=== PATIENT | female | born 1935 | race Caucasian/White ===

== ENCOUNTER → 2017-01-24 | Outpatient (CLI) | payer MEDICARE, OTHER ==
[~2017-01-24] MED LIST: ACET-2321 PO; ASCO500T9 PO; ASPI-1115 PO; CAL-MAG-ZINC PO; CHOL400T11 PO; COD1CAPS PO; FLUT16SP EA NOSTRIL; GLUC100015 PO; HYPR10GE3 BOTH EYES; LATA2.5D7 BOTH EYES; MULT-1175 PO; OMEP-122 PO; OXYC-544 PO; POLY17PO6 PO; POTA99TA24 PO; VITA400C19 PO; [UNRECOGNIZED DRUG - CODE] PO
--- NOTE | 2017-01-25 10:19 | ECHOF ---
ECHOCARDIOGRAM REPORT DATE OF PROCEDURE January 24, 2017 This is a two-dimensional echo with spectral Doppler, color-flow and M-mode. It was obtained in a patient with palpitations. Left atrial dimension is normal. Left ventricle end-diastolic dimension is normal. Left ventricular wall thickness is normal. LV systolic function is normal with ejection fraction of 69%. Right atrium is normal. Right ventricle is normal. Aortic root dimension is normal. Mitral valve is morphologically normal with mild mitral regurgitation. Aortic valve is normal with mild aortic insufficiency. Tricuspid valve shows [id number] tricuspid regurgitation with normal estimated pulmonary artery systolic pressure of 31. Pulmonary valve shows mild pulmonary insufficiency. There is no pericardial effusion. IMPRESSION 1. Normal LV systolic function with ejection fraction of 69%. 2. Mild mitral regurgitation. 3. Mild aortic insufficiency. 4. [id number] tricuspid regurgitation with normal estimated pulmonary artery systolic pressure of 31. 5. Mild pulmonary insufficiency. MTDD
== END ==
LOC: IMA 15:22
PROVIDERS: ATTEND Internal Medicine Cardiovascular Disease
DX: I08.3 Combined rheumatic disorders of mitral, aortic and tricuspid valves (principal); R00.2 Palpitations
CPT/HCPCS: 93306

== ENCOUNTER 2018-02-13 06:25 | Inpatient (IN) ==
[~2018-02-13 06:25] MED LIST changes: -ACET-2321 PO; +ACETAMINOPHEN 500 MG TABLET PO ONE; -ASCO500T9 PO; -ASPI-1115 PO; -CAL-MAG-ZINC PO; -CHOL400T11 PO; +CLINDAMYCIN PB 900 MG/50 ML BAG IV ONE; -COD1CAPS PO; +DEXAMETHASONE 4 MG/ML INJECTION IVP ONE; +FAMOTIDINE PB 20 MG/50 ML BAG IV ONE; -FLUT16SP EA NOSTRIL; -GLUC100015 PO; -HYPR10GE3 BOTH EYES; -LATA2.5D7 BOTH EYES; +LIDOCAINE 1% (10mg/ml) 2mL INJ PF SDV ID ONE; +METOCLOPRAMIDE 10mg/2ml INJECTION IVP ONE; -MULT-1175 PO; -OMEP-122 PO; +ONDANSETRON 4 MG/2 ML INJECTION IVP ONE; -OXYC-544 PO; -POLY17PO6 PO; -POTA99TA24 PO; +TRANEXAMIC ACID 1,000 MG in NS 100 ML IV ONE; -VITA400C19 PO; -[UNRECOGNIZED DRUG - CODE] PO
[2018-02-13 06:44] VITALS: BMI 24.4
[2018-02-13] MEDS ORDERED: TRANEXAMIC ACID 1,000 MG in NS 100 ML IV ONE (07:00)
[2018-02-13] MEDS ORDERED: VANCOMYCIN 1,000 MG INJECTION ONE (07:14)
[2018-02-13] MEDS: LR 1,000 ML IV SCH ×2 (07:25→10:07)
[2018-02-13] MEDS: NOZIN NASAL SWAB NAS SCH ×5 (07:33→21:14)
[2018-02-13] MEDS ORDERED: EPINEPHrine PF 0.25 MG, BUPIVACAINE 0.25% PF 30 ML, KETOROLAC INJ 60 MG in NS 30 ML OPSITE ONE (08:00)
--- NOTE | 2018-02-13 08:17 | Anesthesia Preoperative Report ---
Anesthesia Preoperative Record - Date and Time Date: 02/13/18 Preoperative Diagnosis: Rt TKA M17.11 Proposed Procedure: Right TKA NPO Since Date: 02/13/18 NPO Since Time: 00:00 Allergies/Adverse Reactions: Allergies Allergy/AdvReac Type Severity Reaction Status Date / Time Penicillins Allergy Severe Nausea and Verified 02/13/18 07:44 Vomiting adhesive AdvReac Intermediate Verified 02/13/18 06:56 - Vital Signs Vital Signs: Temperature 97.7 F 02/13/18 06:43 Pulse Rate 70 02/13/18 07:14 Respiratory Rate 15 02/13/18 06:43 Blood Pressure 186/80 H 02/13/18 06:43 Pulse Oximetry 97 02/13/18 06:43 Height and Weight: Height 1.57 m Weight 60.6 kg Body Mass Index 24.4 - Medications Inpatient Medications: Current Medications Lactated Ringer's (Lactated Ringers) 1,000 mls @ 50 mls/hr IV .Q20H SISI Last Admin: 02/13/18 07:25 Dose: 50 mls/hr Isopropyl Alcohol (Nozin Nasal Swab) 1 each PAUL Q1M SISI Stop: 02/13/18 08:48 Last Admin: 02/13/18 07:37 Dose: 1 each Sodium Chloride (Iv Flush) 10 - 80 ml IV PRN PRN PRN Reason: Flushing Home Medications: Home Medications Medication Instructions Recorded Confirmed Type Fluticasone Nasal Burke [Flonase] 2 spray EA NOSTRIL DAILY #0 ml 06/08/15 History Latanoprost 1 drop EACH EYE HS #0 bottle 06/08/15 02/13/18 History Omeprazole 20 mg PO ACB #0 tab 06/08/15 02/13/18 History Vitamin E 400 unit PO DAILY #0 cap 06/08/15 02/13/18 History Ascorbic Acid [Vitamin C] 1,000 mg PO DAILY 02/02/18 02/13/18 History Aspirin [Aspirin EC] 81 mg PO DAILY 02/02/18 02/13/18 History Calcium Carb/D3/Magnesium/Zinc 1 tab PO DAILY 02/02/18 02/13/18 History [Sedrick Mag Zinc-D3 Tablet] Cholecalciferol (Vitamin D3) 1 cap PO DAILY 02/02/18 02/13/18 History [Vitamin D3] Metoprolol Tartrate [Lopressor] 25 mg PO BID 02/02/18 02/13/18 History Multivitamin [One Daily] 1 each PO DAILY 02/02/18 02/13/18 History Potassium Gluconate 400 mg PO DAILY 02/02/18 02/13/18 History Vitamin B Complex/Folic Acid 0.4 mg PO DAILY 02/02/18 02/13/18 History [Vitamin B-100 Complex Tablet] Ergocalciferol (Vit. D2) [Vitamin 1 cap PO O 02/13/18 02/13/18 History D-2] Is Patient on Beta Oneyda?: Yes Beta Oneyda Last Dose Date/Time: Metoprolol 02/13/18 @0630 - Medical History Respiratory: DENIES: Sleep Apnea Cardiovascular: Reports: Other (heart palpitations) Gastrointestional: Reports: Gastroesophageal Reflux Disease (h/o) Neuro/Musculoskeletal: Reports: HX.MS.OSAR - Surgical History HEENT Surgeries: Reports: Eye Surgery (nilay cat ext with IOL; corneal transplant x3), Other (glaucoma and macular degeneration) Cardiac Surgeries/Treatments: Reports: Other (vein stripping LLE) GI Surgery/Treatments: Reports: Appendectomy, Cholecystectomy (lap janice), Hernia Repair (x4) Musculoskeletal Surgery/Tx: Reports: Total Knee Replacement (Lt TKA 2014) Anesthesia Reactions: None Hx Family Anesthesia Reaction: No History of Motion Sickness: No - Social History Smoking Status: Never smoker Hx Chewing Tobacco Use: No Second Hand Exposure: No Substance Use Type: does not use Alcohol Intake Frequency: does not drink - Pertinent Findings EKG: Sinus Rhythm - Physical Exam Respiratory Exam: Present: lungs clear Cardiovascular Exam: Present: regular rate and rhythm - Airway Assessment Mallampati Score: II TMD: 3 Fingerbreadths Neck Extension: fair Overall Assessment: may be difficult intubation - ASA ASA Score: 3 - Plan Regional/Trunk Block: Spinal - Discussion Discussion: Discussed risks/options/alternatives of anesthesia and questions answered. Patient consents. Nursing pain assessment noted. Present for Discussion: family member Attestation Statement: Prior to the delivery of any anesthetic medication, I examined the patient, developed the plan, obtained the patient's consent and discussed the risk and benefits of the procedure with the patient/guardian.
[2018-02-13] MEDS ORDERED: MIDAZOLAM 2mg/2ml INJECTION ONE (08:35)
[2018-02-13] MEDS ORDERED: PROPOFOL 500 MG/50 ML VIAL ONE (08:36)
[2018-02-13] MEDS ORDERED: BUPIVACAINE 0.5% (5mg/ml) PF 30ml INJ SDV ONE (08:36)
[2018-02-13] MEDS ORDERED: LIDOCAINE 2% (100mg/5mL) 5ml PF SDV ONE (08:36)
[2018-02-13] MEDS ORDERED: SALINE FLUSH 10ml SYRINGE IV PRN (08:42)
[2018-02-13] MEDS ORDERED: FentaNYL 250 MCG/5 ML INJECTION ONE (09:10)
[2018-02-13] MEDS ORDERED: EPHEDRINE 50mg/ml INJECTION ONE (09:30)
[2018-02-13] MEDS ORDERED: VANCOMYCIN 1,000 MG INJECTION IAR ONE (09:38)
[2018-02-13] MEDS ORDERED: FentaNYL 100 MCG/2 ML INJECTION IVP PRN (10:11)
[2018-02-13] MEDS ORDERED: HYDROMORPHONE 2 MG/ML INJECTION IVP PRN ×2 (10:11→11:45)
[2018-02-13] MEDS ORDERED: ONDANSETRON 4 MG/2 ML INJECTION IVP PRN ×3 (10:11→12:13)
[2018-02-13] MEDS ORDERED: PROPOFOL 40 ML ONE (10:19)
--- NOTE | 2018-02-13 10:32 | Operative Note ---
- Procedure Preoperative Diagnosis: Right knee primary degenerative joint disease Postoperative Diagnosis: Same as preoperative diagnosis. Surgeon: Domingo Parkinson MD Machine Riveter: Aguila Franco Complications: None. Anesthesia: Spinal. Estimated Blood Loss: See Anesthesia Record. Fluids: Please see Anesthesia Record. Description of Procedure: Mrs. Vieyra and her right knee were identified and marked in the preoperative holding area. She was brought back to the operating suite. Spinal anesthetic was administered and she was placed supine on the operating table. The right lower extremity was prepped and draped in my normal sterile fashion. Timeout was performed. The Divesquare robotic arm was used during the surgery. She has slight valgus deformity and slight hyperextension. A standard anterior midline incision followed by medial parapatellar arthrotomy was performed. Anterior fat pad and meniscus were removed. The patella was everted and a patellar osteotomy was performed leaving 12 mm of bone. She had complete loss in the trochlea and large grade 4 lesions in both the medial and lateral femoral condyles. Tibial and femoral arrays and checkpoints were placed both within the original incision. The bone was then registered with the Divesquare robot. Osteophytes were removed and gaps were captured both 90 and 0 with correction. Using the Divesquare robotic software we moved components to give her 60 mm gaps in extension and 18 mm gaps in flexion. The Divesquare robotic arm was then used to assist with the bone cuts. Posterior osteophytes and remaining meniscus were removed. Trial components were placed. We used a 4 femur and a 4 tibia with a 9 mm spacer and a 2 patella. She still slightly hyperextended so I tried an 11 spacer and give a partial release to the MCL as well as the PCL. After which she tracked well and was well balanced throughout range of motion. The tibia was stamped at the proper rotation. Trial components fit well and bone quality was adequate so we proceeded with press-fit components. Components were press-fit into place. A final spacer was also placed. The knee was ranged one more time to ensure good stability, balance and patellar tracking. 1 g of vancomycin powder was then placed into the knee joint. The capsulotomy was then closed with #1 Vicryl. I then left my assistant quality manager to close the subcutaneous tissue with 2-0 Vicryl and a running 0 V-lock. Running 4-0 Monoderm will be used in the subcuticular layer. After drapes are removed patient will be taken to recovery room under the care of anesthesia.
--- NOTE | 2018-02-13 11:18 | Anesthesia Procedure Note ---
Peripheral Nerve Blockade - Procedure Physician: John Parkinson MD Date: 02/13/18 Surgical Procedure: Right total knee replacement Discussion: Discussed risks/options/alternatives of anesthesia and questions answered. Patient consents. Nursing pain assessment noted. Block Start: 11:13 Block Stop: 11:14 Blocked Employed: Adductor Canal, Single Injection Approach: Right Side Confirmed Position: Supine Patient: Consent IV Sedation: No Initial Vital Signs: Temperature 97.7 F 02/13/18 06:43 Temperature Source Oral 02/13/18 06:43 Pulse Rate 64 02/13/18 06:43 Respiratory Rate 15 02/13/18 06:43 Blood Pressure 186/80 H 02/13/18 06:43 Blood Pressure Mean 115 02/13/18 06:43 Blood Pressure Position Sitting 02/13/18 06:43 Pulse Oximetry 97 02/13/18 06:43 Oxygen Delivery Method 02/13/18 06:43 Post Vital Signs: Temperature 97.7 F 02/13/18 06:43 Pulse Rate 70 02/13/18 07:14 Respiratory Rate 15 02/13/18 06:43 Blood Pressure 186/80 H 02/13/18 06:43 Pulse Oximetry 97 02/13/18 06:43 Initial Pain Pain Score: 0 Post Block Pain Score: 0 Ultrasound Used?: Yes - Injectate Bupivacaine (%): 0.5 Bupivacaine (mL): 20 Was Epi 1:200,000 Used?: No Injection: Injection made incrementally with constant monitoring and aspiration every ml
--- NOTE | 2018-02-13 11:36 | XRay Report ---
Indication: postoperative image PROCEDURE: XR knee RT 2V: Encounter: Initial Comparison: January 29, 2018 Findings: Postoperative changes of right total knee replacement are seen. There is expected postoperative subcutaneous gas. No evidence of hardware failure or acute fracture. No retained radiopaque surgical instruments or sponges. Overlying material causing artifact. Impression: New right total knee prosthesis without evidence of immediate complication. .
[2018-02-13] MEDS ORDERED: DiphenhydrAMINE 50 MG/ML INJECTION IVP PRN (12:13)
[2018-02-13] MEDS ORDERED: NOZIN NASAL SWAB NAS ONE (12:13)
[2018-02-13] MEDS ORDERED: LORazepam 1 MG TABLET PO PRN (12:13)
[2018-02-13] MEDS ORDERED: DiphenhydrAMINE 25 MG CAPSULE PO PRN (12:13)
[2018-02-13] MEDS: NS 1,000 ML IV SCH (12:16)
[2018-02-13] MEDS: ACETAMINOPHEN 325 MG TABLET PO SCH ×3 (12:18→21:15)
--- NOTE | 2018-02-13 12:48 | Anesthesia Postoperative Note ---
- Date and Time Date: 02/13/18 Time: 12:47 - Status Patient Participated in Evaluation: Patient Participated in Person Vital Signs: Temperature 97.1 F 02/13/18 12:03 Pulse Rate 74 02/13/18 12:00 Respiratory Rate 18 02/13/18 12:00 Blood Pressure 137/65 02/13/18 12:00 Pulse Oximetry 95 02/13/18 12:00 Respiratory Function: Airway Patent Cardiovascular Function: Regular Pulse EKG: Sinus Rhythm Mental Status: Alert and Oriented Pain Intensity: 0 Hydration: IV Infusing Complications During Recover: None Apparent - Follow-Up Instructions Instructions: Per Surgeon
[2018-02-13] MEDS: TRAMADOL 50 MG TABLET PO PRN ×2 (14:06→14:50)
[2018-02-13] MEDS: CLINDAMYCIN PB 900 MG/50 ML BAG IV SCH ×2 (15:52→21:15)
[2018-02-13] MEDS: Oxycodone *IR* 5 MG TABLET PO PRN (16:00)
[2018-02-13] MEDS: NAPROXEN 220 MG TABLET PO SCH (18:47)
[2018-02-13] MEDS: POM METOPROLOL TARTRATE 25mg TABLET PO SCH (18:48)
[2018-02-13] MEDS: SENNOSIDES 8.6 MG TABLET PO SCH ×2 (21:14→21:20)
[2018-02-13] MEDS: ASPIRIN *EC* 81 MG TABLET PO SCH (21:15)
[2018-02-13] MEDS: DOCUSATE SODIUM 100 MG CAPSULE PO SCH (21:15)
[2018-02-13] MEDS: --POM--LATANOPROST 0.005% EYE DROPS 2.5ml EACH EYE SCH (21:22)
[2018-02-13] MEDS ORDERED: FALL RISK - PHARMACY CONSULT MC ONE (21:36)
[2018-02-14] MEDS: Oxycodone *IR* 5 MG TABLET PO PRN ×5 (01:21→18:37)
[2018-02-14] MEDS: NS 1,000 ML IV SCH (01:22)
[2018-02-14] MEDS: CLINDAMYCIN PB 900 MG/50 ML BAG IV SCH (03:19)
[2018-02-14] MEDS: NOZIN NASAL SWAB NAS SCH ×5 (05:14→21:49)
[2018-02-14] MEDS: OMEPRAZOLE 20 MG PO SCH ×2 (05:18→06:35)
--- NOTE | 2018-02-14 07:44 | Orthopedic Progress Note ---
Date: Date: 02/14/18 Time: 739 Subjective/Severity of Illness: Rosa is doing well. Didn't sleep well for no specific reason. No report CP or breathing issues. Pt has been working on ROM on her own. Hgb 9.5 , Plan is to d/c to her home. Orthopedic Exam Vital signs: Temperature 96.8 F 02/14/18 07:14 Pulse Rate 97 02/14/18 07:14 Respiratory Rate 16 02/14/18 07:14 Blood Pressure 131/67 02/14/18 07:14 Pulse Oximetry 91 02/14/18 07:14 - Constitutional General Appearance: Present: alert, cooperative, no acute distress - Respiratory Exam Present: non-labored - Cardiovascular Exam Present: pedal pulses intact - Extremities Exam Present: pulses intact. Absent: calf tenderness - Dressing Dressing: bloody drainage (Small area mid incision noted on the Mepilex.) - Integumentary Exam Present: pink, warm, dry - Neurological Exam Present: no deficits - Psychiatric Exam Present: alert, normal affect - Labs Result Diagrams: 02/14/18 04:16 02/14/18 04:16 Abnormal lab results 02/14/18 02/14/18 Range/Units 04:16 04:16 Hgb 9.5 L (12-16) GM/DL Sodium 147 H (134-144) MEQ/L Chloride 110 H (98-107) MEQ/L Creatinine 0.6 L (0.7-1.2) mg/dL Glucose 111 H (65-110) MG/DL Calculated Osmolality 284 H (261-280) MOSM/KG H & H 02/14/18 Range/Units 04:16 Hgb 9.5 L (12-16) GM/DL Orthopedic Assessment and Plan (1) Primary osteoarthritis of right knee Status: Acute Assessment and Plan: Aspirin protocol for VTE prophylaxis. Will continue for 6 weeks post op. SCD's for added DVT coverage. PT/OT services to improve independent function. Monitor small spot of drainage for now. Will address it more if it increases after being up with PT. Na and OSM up. Will d/c IV fluids. Discharge Planning per Case Management. - Anticoagulation Therapy Anticoagulation: ASA 81 mg PO BID x6 weeks Hospital Course Summary Disclaimer: The visit summary below is not to be considered part of the above Progress Note.
[2018-02-14] MEDS: NAPROXEN 220 MG TABLET PO SCH ×2 (09:14→16:55)
[2018-02-14] MEDS: ASPIRIN *EC* 81 MG TABLET PO SCH ×2 (09:15→20:45)
[2018-02-14] MEDS: ACETAMINOPHEN 325 MG TABLET PO SCH ×4 (09:15→20:46)
[2018-02-14] MEDS: POLYETHYL GLYCOL 3350 17gm PACKET PO SCH (09:16)
[2018-02-14] MEDS: DOCUSATE SODIUM 100 MG CAPSULE PO SCH ×2 (09:16→20:45)
[2018-02-14] MEDS: POM METOPROLOL TARTRATE 25mg TABLET PO SCH ×2 (09:22→16:56)
[2018-02-14] MEDS: POTASSIUM GLUCONATE PO SCH (09:23)
[2018-02-14] MEDS: FLUTICASONE 50 MCG EA NOSTRIL SCH (09:23)
[2018-02-14] MEDS ORDERED: SENNOSIDES 8.6 MG TABLET PO PRN (10:59)
--- NOTE | 2018-02-14 11:05 | XRay Report ---
Indication: KNEE PAIN PROCEDURE: XR knee RT 2V: Encounter: Initial Comparison: February 13, 2018 Findings: Total knee prosthesis is stable in position. No acute fracture or subluxation. No evidence of hardware failure. Overlying material obscuring fine bony detail. Impression: No acute fracture. .
[2018-02-14] MEDS: --POM--LATANOPROST 0.005% EYE DROPS 2.5ml EACH EYE SCH (20:45)
[2018-02-14] MEDS: SENNOSIDES 8.6 MG TABLET PO SCH (20:46)
[2018-02-15] MEDS: Oxycodone *IR* 5 MG TABLET PO PRN ×2 (01:25→08:49)
[2018-02-15 03:51] VITALS: RESP 16
[2018-02-15] MEDS: NOZIN NASAL SWAB NAS SCH (05:32)
[2018-02-15] MEDS: OMEPRAZOLE 20 MG PO SCH (05:32)
[2018-02-15 07:19] VITALS: BP 127/69; PULSE 90; TEMP 96.9; O2SAT 93
[2018-02-15] MEDS: NAPROXEN 220 MG TABLET PO SCH (08:48)
[2018-02-15] MEDS: POLYETHYL GLYCOL 3350 17gm PACKET PO SCH (08:48)
[2018-02-15] MEDS: DOCUSATE SODIUM 100 MG CAPSULE PO SCH (08:48)
[2018-02-15] MEDS: ACETAMINOPHEN 325 MG TABLET PO SCH (08:49)
[2018-02-15] MEDS: POTASSIUM GLUCONATE PO SCH (08:50)
[2018-02-15] MEDS: POM METOPROLOL TARTRATE 25mg TABLET PO SCH (08:51)
[2018-02-15] MEDS: FLUTICASONE 50 MCG EA NOSTRIL SCH (08:51)
[2018-02-15] MEDS: ASPIRIN *EC* 81 MG TABLET PO SCH (08:56)
--- NOTE | 2018-02-15 10:11 | Discharge Summary ---
Orthopedic Discharge Info Date of admission: 02/14/18 12:39 Anticipated date of discharge: 02/15/18 Primary care physician: Monique Cardoso APRN Attending Physician: John Parkinson MD Consults: 02/13/18 06:32 Consult to Anesthesiology [CONS] Routine Reason For Exam: Preoperative Assessment 02/13/18 12:13 Case Management Consult [CONS] Routine Reason For Exam: Discharge Planning DME-Walker [CONS] Routine Height: 5 ft 2 in Weight: 60.6 kg Total Joint Outpatient Therapy [CONS] Routine Comment: Remove dressing in 2 weeks - Discharge Diagnosis (1) Primary osteoarthritis of right knee Status: Acute - Procedures Procedures: Procedures Total knee replacement (07/07/15) Rt TKA 02/13/18 - Laboratory Result Diagrams: 02/15/18 03:59 02/15/18 03:59 Laboratory: Abnormal lab results 02/15/18 02/15/18 Range/Units 03:59 03:59 Hgb 9.9 L (12-16) GM/DL Sodium 145 H (134-144) MEQ/L Chloride 110 H (98-107) MEQ/L BUN 23.0 H D (7-17) MG/DL BUN/Creatinine Ratio 29 H (6-26) RATIO Calculated Osmolality 284 H (261-280) MOSM/KG H & H 02/14/18 02/15/18 Range/Units 04:16 03:59 Hgb 9.5 L 9.9 L (12-16) GM/DL Orthopedic Discharge HPI - HPI Comments This patient was admitted for elective surgical tx of end stage degenerative joint disease that failed to respond to conservative treatment. Further details of this is found in the admission H&P. Orthopedic Hospital Course Hospital course: 02/15/18 10:06 After appropriate preoperative clearance and signing of operative consent, the patient was given IV antibiotics, according to orthopedic protocol. The patient was taken to the operating room and underwent elective right total knee arthroplasty. Following surgery, antibiotics were discontinued less than 24 hours according to joint protocol. Aspirin was initiated and SCDs added for DVT prevention. The dressing had a single drop of blood on the mid incision that was uneventful. Dressing was intact at discharge. Pain control was obtained via multimodal approach. Bowel motivation addressed with scheduled and PRN medications. Early mobilization was initiated through PT services. Discharge arrangements made by a collaborative effort between the patient and Case Management. Her Na and OSM were slightly elevated after getting NS in her IV. IVF were held and po fluids encouraged. Na improved by discharge. Renal function was WNL and remaining lytes were normal. She felt a "pop" in the lateral knee when mobilizing after surgery on POD #1. This did not re-occur and pain settled down by the next day. Repeat x-rays did not reveal any structural changes in the TKA. She was mobile on POD #2 with no problems and passed PT discharge goals. Follow-up is scheduled in 2-3 weeks. Discharge instructions given by orthopedic providers and nursing staff at discharge. Discharge condition was good. Discharge plan is home. Care extended to > 2 midnight stays?: Yes Comments: Knee "popped" Monitor labs. Discharge Plan - Med Rec/Dispo Referrals/Follow Up: John Parkinson MD [Physician] - 03/07/18 9:30 am Hemanth Instructions: [facility] [place] Ortho Postop Instructions Additional Instructions: [facility] ON 02/16/2018 AT 3:15PM FOR PHYSICAL THERAPY EVAL. PHONE [phone], OPTION 3. Prescriptions: New Aspirin *EC* [Ecotrin] 81 mg PO BID tab Acetaminophen [Tylenol] 650 mg PO QID tab Docusate Sodium [Colace] 100 mg PO BID cap Naproxen [Aleve (Naproxen) 220 mg] 440 mg PO BIDWM tab Oxycodone *IR* [Roxicodone *Ir*] 5 - 15 mg PO Q3H PRN #60 tab PRN Reason: Pain PEG 3350 17gm PACKET [Miralax] 17 gm PO DAILY packet Continue Latanoprost 1 drop EACH EYE HS #0 bottle Fluticasone Nasal Luther [Flonase] 2 spray EA NOSTRIL DAILY #0 ml Ascorbic Acid [Vitamin C] 1,000 mg PO DAILY Calcium Carb/D3/Magnesium/Zinc [Sedrick Mag Zinc-D3 Tablet] 1 tab PO DAILY Cholecalciferol (Vitamin D3) [Vitamin D3] 1 cap PO DAILY Multivitamin [One Daily] 1 each PO DAILY Potassium Gluconate 400 mg PO DAILY Vitamin B Complex/Folic Acid [Vitamin B-100 Complex Tablet] 0.4 mg PO DAILY Ergocalciferol (Vit. D2) [Vitamin D-2] 1 cap PO O Omeprazole 20 mg PO ACB #0 tab Vitamin E 400 unit PO DAILY #0 cap Metoprolol Tartrate [Lopressor] 25 mg PO BID Discontinued Aspirin [Aspirin EC] 81 mg PO DAILY - Disposition 01 Discharged Home, Self-Care - Dismissal Complete Discharge Instructions are:: Complete
[2018-02-15] MEDS ORDERED: BISACODYL 10 MG SUPPOSITORY RECTALLY SCH (20:00)
== END 2018-02-15 10:30 | disposition home or self-care (01) | DRG 470 ==
LOC: SUR 06:25 → NMC.PERIOP 06:28 → SRG 12:03
PROVIDERS: ADMIT Orthopaedic Surgery; ATTEND Orthopaedic Surgery